=== PATIENT | male | born 1945 | race Two or more races ===

== ENCOUNTER 2020-09-21 07:15 | Inpatient (IN) | payer OTHER ==
[~2020-09-21] VITALS: Ht 157.5 cm; Wt 92.1 kg
[2020-09-21] MEDS ORDERED: FORTAMET1000 MG PO (09:15)
[2020-09-21] MEDS ORDERED: [UNRECOGNIZED DRUG - OTHER] PO (09:16)
[2020-09-21] MEDS ORDERED: CARVEDILOL25 M1 PO (09:17)
[2020-09-21] MEDS ORDERED: HORIZANT300 MG PO (09:17)
[2020-09-21] MEDS ORDERED: LIPITOR20 MG PO (09:17)
[2020-09-21] MEDS ORDERED: GLUCOTROL10 MG PO (09:18)
[2020-09-21] MEDS ORDERED: DITROPAN XL5 MG PO (09:18)
[2020-09-21] MEDS ORDERED: PLETAL PO (09:19)
[2020-09-21] MEDS ORDERED: ADULT LOW DOSE81 M1 PO (09:19)
[2020-09-21] MEDS ORDERED: FLOVENT HFA10.6 GM IH (09:20)
[2020-09-28] MEDS ORDERED: HYDRALAZINE HCL50 MG (08:04)
[2020-09-28] MEDS ORDERED: CILOSTAZOL50 MG (08:04)
[2020-09-28] MEDS ORDERED: JANUVIA100 MG (08:04)
== END 2020-09-30 23:39 | disposition home or self-care (01) | DRG 470 ==
LOC: SURH 09-28 05:30 → O/R 09-28 05:30 → SURH 09-28 07:00
PROVIDERS: ADMIT Orthopaedic Surgery; ATTEND Orthopaedic Surgery
PROC: 0SRC0J9 Replacement of Right Knee Joint with Synthetic Substitute, Cemented, Open Approach (ICD-10-PCS; principal; 2020-09-28 07:00)
PROC: 3E0F7GC Introduction of Other Therapeutic Substance into Respiratory Tract, Via Natural or Artificial Opening (ICD-10-PCS; 2020-09-29)
DX: M17.11 Unilateral primary osteoarthritis, right knee (principal); D62 Acute posthemorrhagic anemia; Z20.828 Contact with and (suspected) exposure to other viral communicable diseases; J45.909 Unspecified asthma, uncomplicated; Z77.22 Contact with and (suspected) exposure to environmental tobacco smoke (acute) (chronic); Z96.651 Presence of right artificial knee joint